=== PATIENT | male | born 1970 | race Caucasian/White ===

== ENCOUNTER 2023-02-08 09:02 | Outpatient (CLI) | payer BC, SELFPAY | END 2023-02-08 09:03 | disposition home or self-care (01) | LOC: NFLDREF 02-10 20:23 | PROVIDERS: PCP Physician Assistant Medical; Referring Provider Physician Assistant Medical; Visit Provider Physician Assistant Medical | DX: Z12.5 Encounter for screening for malignant neoplasm of prostate (principal); E78.2 Mixed hyperlipidemia | CPT/HCPCS: 80053; 80061; 84153 ==

== ENCOUNTER 2023-02-14 07:54 | Outpatient (CLI) | payer BC, SELFPAY ==
--- NOTE | 2023-02-14 08:00 | CRLHL7_ITS ---
For Patients: As a result of the Century Cures Act, medical imaging exams and procedure reports are released immediately into your electronic medical record. You may view this report before your referring provider. If you have questions, please contact your health care provider. INDICATION: Lung cancer screening. History of smoking. High risk patient with greater than 23 pack-year smoking history. TECHNIQUE: Low-dose lung cancer screening non-contrast CT chest. Dose reduction techniques were used. COMPARISON: None. FINDINGS: NODULES: Calcified granuloma adjacent to the major fissure on the left. 5 millimeter nodule left lung apex, 07/06. Cluster of calcified granulomas within the lingula, . LUNGS AND PLEURA: Biapical pleural parenchymal scarring. MEDIASTINUM: Calcified left hilar lymph nodes are present in sequela of granulomatous disease. Upper limits normal of right paratracheal lymph node noted. No thyroid lesion. No pericardial effusion. CORONARY ARTERY CALCIFICATION: Present. LIMITED UPPER ABDOMEN: Unremarkable. MUSCULOSKELETAL: No fracture. Degenerative changes. IMPRESSION: 5 millimeter noncalcified nodule left lung apex. Sequela of granulomatous disease. LUNG-RADS CATEGORY: 2: Benign. RADIOLOGIST RECOMMENDATION: Continue annual screening with low-dose CT chest in 12 months. Please note that all CT scans at this facility use dose modulation, iterative reconstruction, and/or weight-based dosing when appropriate to reduce radiation dose to as low as reasonably achievable. Dictated by Erickson Epperson MD @ 02/14/2023 11:08:47 AM (Electronically Signed)
== END 2023-02-14 07:55 | disposition home or self-care (01) ==
PROVIDERS: PCP Physician Assistant Medical; Visit Provider Physician Assistant Medical
DX: Z12.2 Encounter for screening for malignant neoplasm of respiratory organs (principal); R91.1 Solitary pulmonary nodule; Z87.891 Personal history of nicotine dependence
CPT/HCPCS: 71271

== ENCOUNTER 2024-08-26 07:45 | Outpatient (CLI) | payer BC, SELFPAY ==
--- NOTE | 2024-08-26 08:00 | CRLHL7_ITS ---
For Patients: As a result of the Cures Act, medical imaging exams and procedure reports are released immediately into your electronic medical record. You may view this report before your referring provider. If you have questions, please contact your health care provider. INDICATION: Lung cancer screening. History of smoking. High risk patient with greater than 23 pack-year smoking history. TECHNIQUE: Low-dose lung cancer screening non-contrast CT chest. Dose reduction techniques were used. COMPARISON: 02.14.23. FINDINGS: NODULES: 5 millimeter nodule left lung apex is unchanged. Calcified nodule within the lingula is stable. LUNGS AND PLEURA: Emphysema. Biapical pleural-parenchymal scarring. MEDIASTINUM: No adenopathy. CORONARY ARTERY CALCIFICATION: Present. LIMITED UPPER ABDOMEN: Stable benign low-density structure in the liver. MUSCULOSKELETAL: Discogenic spurring. IMPRESSION: Negative for lung cancer screening purposes. LUNG-RADS CATEGORY: 2: Benign. RADIOLOGIST RECOMMENDATION: Continue annual screening with low-dose CT chest in 12 months. Please note that all CT scans at this facility use dose modulation, iterative reconstruction, and/or weight-based dosing when appropriate to reduce radiation dose to as low as reasonably achievable. Dictated by Erickson Epperson MD @ 08/26/2024 9:13:25 AM (Electronically Signed)
== END 2024-08-26 07:46 | disposition home or self-care (01) ==
PROVIDERS: PCP Physician Assistant Medical; Visit Provider Physician Assistant Medical
DX: Z12.2 Encounter for screening for malignant neoplasm of respiratory organs (principal); Z87.891 Personal history of nicotine dependence
CPT/HCPCS: 71271

== ENCOUNTER 2024-09-23 08:24 | Outpatient (CLI) | payer BC, SELFPAY | END 2024-09-23 08:25 | disposition home or self-care (01) | PROVIDERS: PCP Physician Assistant Medical; Visit Provider Physician Assistant Medical | DX: Z00.00 Encounter for general adult medical examination without abnormal findings (principal); E78.5 Hyperlipidemia, unspecified; I25.10 Atherosclerotic heart disease of native coronary artery without angina pectoris; Z12.5 Encounter for screening for malignant neoplasm of prostate | CPT/HCPCS: 80053; 80061; G0103 ==

== ENCOUNTER 2024-10-15 06:18 | Outpatient (CLI) | payer BC, SELFPAY ==
--- NOTE | 2024-10-15 07:50 | P.ANES_ITS ---
Anesthesia Charges Start Date/Time Anesthesia Start Date: 10/15/24 Anesthesia Start Time: 07:23 Stop Date/Time Anesthesia Stop Date: 10/15/24 Anesthesia Stop Time: 07:47 Coding CPT Codes CPT Codes: FRANCISCA LWR INTST NDSC NOS - 17533 ([id number]) P2 - PATIENT W/MILD SYST DISEASE, QK - INTERVENTION SPECIALIST 2-4 CNCRNT ANES PROC, QX - DRUPAL DEVELOPER SVC W/ MD MED DIRECTION
--- NOTE | 2024-10-15 07:50 | W.ANESCHARGE ---
Anesthesia Charges Start Date/Time Anesthesia Start Date: 10/15/24 Anesthesia Start Time: 07:23 Stop Date/Time Anesthesia Stop Date: 10/15/24 Anesthesia Stop Time: 07:47 Coding CPT Codes CPT Codes: FRANCISCA LWR INTST NDSC NOS - 16300 ([id number]) P2 - PATIENT W/MILD SYST DISEASE, QK - HOME VISIT FIELD CARE MANAGER 2-4 CNCRNT ANES PROC, QX - DIRECTOR OF ANCILLARY SERVICES SVC W/ MD MED DIRECTION
--- NOTE | 2024-10-15 08:28 | P.ANES_ITS ---
Anesthesia Charges Start Date/Time Anesthesia Start Date: 10/15/24 Anesthesia Start Time: 07:23 Stop Date/Time Anesthesia Stop Date: 10/15/24 Anesthesia Stop Time: 07:47 Coding CPT Codes CPT Codes: FRANCISCA LWR INTST SCR COLSC - 28920 ([id number]) P2 - PATIENT W/MILD SYST DISEASE, QK - FIELD SUPPORT REPRESENTATIVE 2-4 CNCRNT ANES PROC, QX - PURLER SVC W/ MD MED DIRECTION
--- NOTE | 2024-10-15 08:28 | W.ANESCHARGE ---
Anesthesia Charges Start Date/Time Anesthesia Start Date: 10/15/24 Anesthesia Start Time: 07:23 Stop Date/Time Anesthesia Stop Date: 10/15/24 Anesthesia Stop Time: 07:47 Coding CPT Codes CPT Codes: FRANCISCA LWR INTST SCR COLSC - 87224 ([id number]) P2 - PATIENT W/MILD SYST DISEASE, QK - LABORATORY MECHANIC HELPER 2-4 CNCRNT ANES PROC, QX - SOFTWARE SALES SVC W/ MD MED DIRECTION
== END 2024-10-15 06:19 | disposition home or self-care (01) ==
LOC: OP CLINIC 06:19
PROVIDERS: PCP Physician Assistant Medical; Visit Provider Internal Medicine
DX: Z12.11 Encounter for screening for malignant neoplasm of colon (principal)
CPT/HCPCS: 00811; 00812; 45378; J2704

== ENCOUNTER 2024-11-04 08:29 | Outpatient (CLI) | payer BC, SELFPAY | END 2024-11-04 08:30 | disposition home or self-care (01) | PROVIDERS: PCP Physician Assistant Medical; Visit Provider Podiatrist | DX: B35.3 Tinea pedis (principal); B35.1 Tinea unguium | CPT/HCPCS: 84450; 84460 ==